=== PATIENT | male | born 1955 | race Caucasian/White ===

== ENCOUNTER 2023-02-28 08:22 | Day surgery (SDC) | payer OTHER, SELFPAY ==
--- NOTE | 2023-02-27 09:41 | P.CONAN_ITS ---
Documented by User: Valentine Dey NP 02/27/23 09:44 HPI - Anesthesia Eval Consult details Narrative: 67yo M for Upper Endoscopy and Colonoscopy [facility] Past Medical History Medical History (Updated 02/28/23 @ 09:55 by Ashley Alvares MD) Basal cell carcinoma (BCC) in situ of skin HLD (hyperlipidemia) Hypothyroid Lymphoma of small bowel Surgical History Surgical History H/O hernia repair Hx of colonoscopy S/P left knee arthroscopy Social History Social History Patient Tobacco Use Status: Never used Tobacco Use of substances other than those prescribed or required for medical reasons: No Advance Directives: No Advance Directives Information Provided: Yes Meds Allergies Allergy/AdvReac Type Severity Reaction Status Date / Time No Known Allergies Allergy Verified 02/27/23 09:43 Home Medications Medication Instructions Recorded Confirmed Last Taken Type levothyroxine 25 mcg tablet 25 mcg PO DAILY 02/27/23 02/27/23 Unknown History simvastatin 20 mg tablet 20 mg PO BEDTIME 02/27/23 02/27/23 Unknown History Exam Exam Date and Time: February 27, [id number] Assessment and Plan Assessment Anesthesia Assessment: Chart Reviewed Documented by User: Ashley Alvares MD 02/28/23 09:57 [facility] Past Medical History Medical History (Updated 02/28/23 @ 09:55 by Ashley Alvares MD) Basal cell carcinoma (BCC) in situ of skin HLD (hyperlipidemia) Hypothyroid Lymphoma of small bowel Family History Family history of problems with anesthesia: No Surgical History Surgical History H/O hernia repair Hx of colonoscopy S/P left knee arthroscopy History of Problems with Anesthesia: No Social History Social History Patient Tobacco Use Status: Never used Tobacco Use of substances other than those prescribed or required for medical reasons: No Advance Directives: No Advance Directives Information Provided: Yes Meds Allergies Allergy/AdvReac Type Severity Reaction Status Date / Time No Known Allergies Allergy Verified 02/27/23 09:43 Home Medications Medication Instructions Recorded Confirmed Last Taken Type levothyroxine 25 mcg tablet 25 mcg PO DAILY 02/27/23 02/27/23 Unknown History simvastatin 20 mg tablet 20 mg PO BEDTIME 02/27/23 02/27/23 Unknown History Exam Height,Weight and Vital Signs: Height 6 ft 1 in Weight 82.554 kg Vital Signs Temp Pulse Resp BP Pulse Ox O2 Del Method 02/28/23 08:41 97.8 F 56 18 140/76 H 96 Room Air Airway Mallampati Class: II TM Dist: >3cm Neck ROM: Full Loose/Missing/Broken Teeth: No (Denies broken, loose, missing teeth) Heart: RRR Lungs: CTAB Assessment and Plan Assessment Anesthesia Assessment: Anesthesia Plan Discussed Final Anesthetic Review Family History of Problems with Anesthesia: No History of Problems with Anesthesia: No NPO: Yes ASA Class: III Final Preanesthetic Review: No Changes in Pt Med Stat, Meds/Allgs Chart Reviewed, Consent Obtained/Reviewed and Anes Risks/Benef Reviewed Patient Risk: Intermediate Procedure Risk: Low Assessment/Block/Sedation in SS: Assess/Block/Sedation-SS Anesthetic Plan Anesthetic Plan: MAC: Disposition: Standard PACU
[2023-02-28 08:41] VITALS: BP 140/76; PULSE 56; RESP 18; TEMP 36.6; O2SAT 96; BMI 24.0
[2023-02-28 09:09] VITALS: BMI 24.0
[2023-02-28] MEDS: Lactated Ringers 1,000 ML 100 ML IVCONT (09:16)
--- NOTE | 2023-02-28 09:42 | MHC.SHP ---
Pre-Procedural Eval Section A Date of Service: 02/28/23 Section B Chief Complaint: screening,reflux Details of Present Illness: see H&P no changes Relevant Family History (Specify if Yes): No Relevant Social History: None Present Medications: see Short Stay Collaborative assessment Medical History: No relevant PMH History of Previous Operations: No relevant previous surgery Allergies: Allergies Allergy/AdvReac Type Severity Reaction Status Date / Time No Known Allergies Allergy Verified 02/27/23 09:43 Review of Systems Sugical H&P ROS: Negative: Constitution, Cardiovascular, Respiratory, Neurological, Psychiatric, Hem-Onc, Allergic/Immunologic, Gastrointestinal, Genitourinary, Musculoskeletal, Integumentary, Endocrine and Eyes/Ears/Nose/Throat Exam Surgical H&P Exam: Normal: HEENT, Normal: Heart, Normal: Lungs, Normal: Extremities, Normal: Abdomen, Normal: Skin and Normal: Neurological Plan I have reviewed the history and physical and performed a pertinent physical examination on my patient. No changes have occurred unless specified. Time Spent With Patient Time: Total time managing care of this patient today ____ minutes.
[2023-02-28 10:47] VITALS: BP 99/58; PULSE 63; RESP 18; TEMP 36.4; O2SAT 97
--- NOTE | 2023-02-28 10:49 | PM.OP ---
Brief Operative Note Date of Service: 02/28/23 Pre-op diagnosis: screening gerd Post-op diagnosis: same Procedure: egd colon Surgeon: Domenico Waldron Anesthesia: MAC Estimated blood loss (mL): 5 Pathology: other Condition: stable Disposition: PACU
[2023-02-28 11:02] VITALS: BP 109/63; PULSE 57; RESP 16; O2SAT 96
[2023-02-28 11:17] VITALS: BP 119/65; PULSE 49; RESP 18; TEMP 36.4; O2SAT 96
--- NOTE | 2023-02-28 22:31 | OP_ITS ---
DATE OF SERVICE: 02/28/2023 SURGEON: Domenico Waldron MD INDICATIONS: 1. Gastroesophageal reflux disease. 2. Colon cancer screening. PREOPERATIVE DIAGNOSIS: POSTOPERATIVE DIAGNOSIS: PROCEDURE PERFORMED: Upper endoscopy and biopsy, colonoscopy to the terminal ileum with snare polypectomy. ESTIMATED BLOOD LOSS: COMPLICATIONS: ANESTHESIA: Monitored anesthesia care. ASSISTANTS: SPECIMENS: DESCRIPTION OF PROCEDURE: History and physical performed. The risks and benefits of the procedure were explained to the patient. Informed consent was obtained. The patient was placed in the left lateral decubitus position. The Olympus video gastroscope was introduced into the esophagus, stomach, and duodenum. Examination was performed. The scope was removed. He was repositioned for colonoscopy. A digital rectal exam was performed and was found to be normal. The Olympus pediatric video colonoscope was introduced into the rectum and advanced to the cecum. The cecum was identified by transillumination, palpation, and identification of ileocecal valve. Examination was performed and the scope was removed. He tolerated the procedure well and was returned to recovery area in stable condition. FINDINGS: Upper endoscopy: 1. Esophagus: The esophagus showed an irregular EG junction. There was no esophagitis. Biopsies were obtained from the EG junction. 2. Stomach: Stomach showed antral gastritis with patchy erythema and some minimal erosive changes. Again, there were patchy biopsies were obtained from the antrum to evaluate for H pylori. 3. Duodenum: The bulb and 2nd portion were normal. Colonoscopy: The terminal ileum was not examined. The visualized colonic mucosa was normal. The quality of the prep was good. A single polyp measuring approximately 8 mm was identified, removed with a snare at 4.0 cm from the anal verge. Retroflexed examination showed small internal hemorrhoids. IMPRESSION: 1. Gastritis. 2. Colon polyp. RECOMMENDATION: Follow up biopsy results. MD CA Lock/KENDALL / [id number]
== END 2023-02-28 11:46 | disposition home or self-care (01) ==
PROVIDERS: PCP Internal Medicine; Visit Provider Internal Medicine Gastroenterology
PROC: (CPT 45385; principal; 2023-02-28 09:40)
DX: Z12.11 Encounter for screening for malignant neoplasm of colon (principal); Z86.010 Personal history of colon polyps; K63.5 Polyp of colon; K64.8 Other hemorrhoids; K21.9 Gastro-esophageal reflux disease without esophagitis; K29.50 Unspecified chronic gastritis without bleeding; Z85.72 Personal history of non-Hodgkin lymphomas; Z92.3 Personal history of irradiation; E03.9 Hypothyroidism, unspecified; E78.00 Pure hypercholesterolemia, unspecified; Z79.899 Other long term (current) drug therapy
CPT/HCPCS: 45385; 43239; 88305; 88342